=== PATIENT | female | born 1940 | race Caucasian/White ===

== ENCOUNTER 2021-08-03 13:08 | Observation (INO) | payer OTHER, MEDICARE ==
[~2021-08-03] VITALS: Ht 152.4 cm; Wt 76.5 kg
[2021-08-03] MEDS ORDERED: IOHEXOL 300 MG/ML 100ML VIAL. IV ONE (14:15)
[2021-08-03] MEDS ORDERED: CONTRAST GIVEN. MC PRN (14:30)
--- NOTE | 2021-08-03 14:30 | EKG ---
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
[2021-08-03 14:31] LABS: BASO # 0.1 x10^3/uL (0.0-0.2); BASO % 0 % (0-3); EOS # 0.1 x10^3/uL (0.0-0.7); EOS % 1 % (0-3); HEMATOCRIT 37.4 % (36.0-47.0); HEMOGLOBIN 12.8 g/dL (12.0-15.5); LYMPH % 12 % (24-48); MEAN CORPUSCULAR HEMOGLOBIN 33 pg (25-35); MEAN CORPUSCULAR HGB CONC 34 g/dL (31-37); MEAN CORPUSCULAR VOLUME 95 fL (79-100); MONO # 1.4 x10^3/uL (0.0-1.1); MONO % 9 % (0-9); NEUT # 13.1 x10^3/uL (1.8-7.7); NEUT % 79 % (31-73); PLATELET COUNT 292 x10^3/uL (140-400); RED BLOOD COUNT 3.92 x10^6/uL (3.50-5.40); RED CELL DISTRIBUTION WIDTH 12.4 % (11.5-14.5); WHITE BLOOD COUNT 16.6 x10^3/uL (4.0-11.0)
[2021-08-03 15:15] LABS: CALCIUM 8.9 mg/dL (8.5-10.1); CREATININE 1.2 mg/dL (0.6-1.0); GFR 42.9; POTASSIUM 3.6 mmol/L (3.5-5.1)
[2021-08-03 15:22] LABS: ALBUMIN 3.5 g/dL (3.4-5.0); ALBUMIN/GLOBULIN RATIO 0.8 (1.0-1.7); TOTAL BILIRUBIN 0.4 mg/dL (0.2-1.0); TOTAL PROTEIN 7.7 g/dL (6.4-8.2)
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
[2021-08-03] MEDS ORDERED: diazePAM 5 MG TABLET PO ONE (17:30)
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
[2021-08-03] MEDS ORDERED: ACETAMINOPHEN 325 MG TABLET. PO PRN (18:15)
[2021-08-03] MEDS ORDERED: LORazepam 0.5 MG TABLET PO PRN (18:15)
[2021-08-03] MEDS ORDERED: fentaNYL PF VIAL 100 MCG/2 ML VIAL IVP PRN (18:15)
[2021-08-03] MEDS ORDERED: ONDANSETRON PF 4 MG/2 ML VIAL. IVP PRN (18:15)
[2021-08-03] MEDS ORDERED: traMADol 50 MG TABLET PO PRN (18:15)
[2021-08-03 20:10] VITALS: BP 169/77
[2021-08-03] MEDS ORDERED: FLU VACC QUAD 21-22 (6MOS+) PF 0.5 ML SYRINGE. VAX IM ONE (21:00)
[2021-08-03] MEDS ORDERED: VITS A & D/LANOLIN TOPICAL OINTMENT 42GM TUBE. TP PRN (21:00)
[2021-08-03] MEDS ORDERED: ATOR40TA59 PO (21:26)
[2021-08-03] MEDS ORDERED: LEVO88TA4 PO (21:26)
[2021-08-03] MEDS ORDERED: ENAL10TA11 PO (21:26)
[2021-08-03] MEDS ORDERED: SERT50TA PO (21:26)
[2021-08-03] MEDS ORDERED: CARB200T PO ×2 (21:26)
[2021-08-03] MEDS ORDERED: AMLO-186 PO (21:26)
[2021-08-03] MEDS ORDERED: CLON0.1T PO (21:26)
[2021-08-03] MEDS ORDERED: TRIA1CAP3 PO (21:26)
[2021-08-03] MEDS: cloNIDine HCL 0.2 MG TABLET PO SCH (21:39)
[2021-08-03 22:50] VITALS: BP 139/77
[2021-08-04 03:10] VITALS: BP 137/72
[2021-08-04] MEDS: HYDROcodone/APAP 5/325MG 1 TAB TABLET PO PRN ×2 (03:27→09:09)
[2021-08-04] MEDS: cloNIDine HCL 0.2 MG TABLET PO SCH (05:16)
[2021-08-04] MEDS ORDERED: LORA0.5T96 PO (06:21)
[2021-08-04 07:00] VITALS: BP 175/79
[2021-08-04] MEDS ORDERED: LORazepam 0.5 MG TABLET PO PRN (09:15)
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
[2021-08-04] MEDS ORDERED: HYDR-2761 PO (10:16)
[2021-08-04 10:24] LABS: AMYLASE 32 U/L (25-115); LIPASE 57 U/L (73-393)
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
[2021-08-04] MEDS ORDERED: carBAMazepine 200 MG TABLET PO SCH ×2 (10:30→21:00)
[2021-08-04] MEDS ORDERED: SERTRALINE 50 MG TABLET. PO SCH (10:30)
[2021-08-04] MEDS ORDERED: LEVOTHYROXINE 88 MCG TABLET PO SCH (10:30)
--- NOTE | 2021-08-04 11:09 | NUR ---
Discharge Note: MINE FERGUSON [address] Discharge instructions and discharge home medications reviewed with Patient and a copy given. All questions have been answered and understanding verbalized. The following instructions and handouts were given: Chest contusion Discontinued lines and drains: Peripheral IV intact. Patient discharged to Home or Self Care with Family Member via Ambulated
[2021-08-04] MEDS ORDERED: cloNIDine HCL 0.1 MG TABLET PO SCH (21:00)
[2021-08-04] MEDS ORDERED: ATORVASTATIN CALCIUM 40 MG TABLET. PO SCH (21:00)
== END 2021-08-04 11:08 | disposition home or self-care (01) ==
LOC: ER 13:08 → 6 SOUTH 17:25
PROVIDERS: ADMIT Internal Medicine; ATTEND Internal Medicine
DX: S20.211A Contusion of right front wall of thorax, initial encounter (principal); S30.1XXA Contusion of abdominal wall, initial encounter; S50.10XA Contusion of unspecified forearm, initial encounter; S80.01XA Contusion of right knee, initial encounter; S40.812A Abrasion of left upper arm, initial encounter; S50.811A Abrasion of right forearm, initial encounter; S80.211A Abrasion, right knee, initial encounter; S80.212A Abrasion, left knee, initial encounter; I44.7 Left bundle-branch block, unspecified; E78.5 Hyperlipidemia, unspecified; F31.9 Bipolar disorder, unspecified; I10 Essential (primary) hypertension; K58.9 Irritable bowel syndrome, unspecified; V43.52XA Car driver injured in collision with other type car in traffic accident, initial encounter; Y92.410 Unspecified street and highway as the place of occurrence of the external cause; Y93.89 Activity, other specified; Y99.8 Other external cause status; Z82.49 Family history of ischemic heart disease and other diseases of the circulatory system
CPT/HCPCS: 36415; 70450; 71260; 72125; 74177; 80053; 82150; 82553; 83690; 84484; 85025; 93005; 99285; G0378; G0379; Q9967